=== PATIENT | male | born 1965 | race Caucasian/White ===

== ENCOUNTER 2023-05-12 06:28 | Day surgery (SDC) | payer OTHER ==
[2023-05-10 10:03] VITALS: BMI 21.1
[2023-05-12] MEDS ORDERED: PROPOFOL 20 ML ONE (06:44)
[2023-05-12] MEDS ORDERED: Fentanyl 250 MCG/5 ML VIAL ONE (06:44)
[2023-05-12] MEDS ORDERED: Ondansetron PF 4 MG/2 ML Vial ONE ×2 (06:46→07:28)
[2023-05-12] MEDS ORDERED: Dexamethasone 20 MG/5 ML VIAL ONE ×2 (06:46→07:28)
[2023-05-12] MEDS ORDERED: Lidocaine 1% PF 5 ML VIAL ONE ×2 (06:46→07:28)
[2023-05-12] MEDS ORDERED: Rocuronium Bromide 10 MG/ML (10ML VIAL) ONE ×2 (06:48→07:28)
[2023-05-12 06:58] LABS: #Eosinphils 0.1 thou/uL (0.0-0.7); #Monocytes 0.5 thou/uL (0.11-0.59); #Neutrophils 4.3 thou/uL (1.40-6.50); %Basophils 0.5 % (0.0-1.0); %Eosinophils 0.8 % (0.0-10.0); %Lymphocytes 18.5 % (21.0-51.0); %Monocytes 7.9 % (0.0-10.0); %Neutrophils 72.1 % (42.0-75.0); Hematocrit 48.9 % (42.0-52.0); Hemoglobin 16.5 g/dL (14.0-18.0); Mean Corpuscular HGB CONC 33.7 g/dL (32.0-36.0); Mean Corpuscular Hemoglobin 32.2 pg (27.0-31.0); Mean Corpuscular Volume 95.3 fl (78.0-98.0); Mean Platelet Volume 10.4 fL (7.4-10.4); Platelet Count 230 10x3/uL (130-400); RBC Distribution Width 11.9 % (11.5-14.5); Red Blood Cell (RBC) Count 5.13 mill/uL (4.70-6.10)
[2023-05-12] MEDS ORDERED: CEFAZOLIN 2 GM VIAL ONE (07:06)
[2023-05-12] MEDS ORDERED: Sodium Chloride 0.9% 100 ML ONE (07:06)
[2023-05-12 07:20] LABS: Anion Gap 13 mmol/L (10-20); BUN (Urea Nitrogen) 15 mg/dL (8.4-25.7); Calc. Creatinine Clearance 69 mL/min (70-130); Calcium 9.5 mg/dL (7.8-10.44); Carbon Dioxide 23 mmol/L (22-29); Chloride 109 mmol/L (98-107); Estimated GFR 70; Glucose 103 mg/dL (70-105); Potassium 3.7 mmol/L (3.5-5.1); Sodium 141 mmol/L (136-145)
[2023-05-12] MEDS ORDERED: NEOSTIGMINE 3 MG/3 ML SYR 3 MG/3 ML SYRINGE ONE ×2 (07:28→08:25)
[2023-05-12] MEDS ORDERED: PROPOFOL 200 MG/20 ML VIAL ONE (07:28)
[2023-05-12] MEDS ORDERED: Glycopyrrolate 0.2 MG/ML 5 ML SYRINGE ONE ×2 (07:28→08:25)
== END 2023-05-12 10:18 | disposition home or self-care (01) ==
LOC: SDC 06:28
PROVIDERS: ATTEND Neurological Surgery
PROC: 0RG2070 Fusion of 2 or more Cervical Vertebral Joints with Autologous Tissue Substitute, Anterior Approach, Anterior Column, Open Approach (ICD-10-PCS; principal; 2023-05-12)
PROC: 0RG20A0 Fusion of 2 or more Cervical Vertebral Joints with Interbody Fusion Device, Anterior Approach, Anterior Column, Open Approach (ICD-10-PCS; 2023-05-12)
DX: M50.122 Cervical disc disorder at C5-C6 level with radiculopathy (principal); M50.123 Cervical disc disorder at C6-C7 level with radiculopathy; Z91.040 Latex allergy status
CPT/HCPCS: 36415; 80048; 85025; 93005; 93010; C1713; J1100; J2405; J2704; J3010; J3490